=== PATIENT | male | born 1955 | race Hispanic/Latino ===

== ENCOUNTER 2018-07-18 12:34 | Emergency (ER) | payer MEDICAID ==
[2018-07-18 12:34] VITALS: BMI 19.8
[2018-07-18 13:07] VITALS: RESP 20
[2018-07-18] MEDS ORDERED: Permethrin 5% Cream(60 gm) TOP ONE (13:07)
--- NOTE | 2018-07-18 13:52 | C.PDOC ---
History Of Present Illness 62 year old male with PMHx of HTN, Hepatitis C, scabies and homelessness presents to the ED complaining of itching and insect bites to his body. Reports he was admitted in the hospital several months ago for Pneumonia where they got rid of his scabies but now he has it again because he is homeless. Also complains of hernia. As per records, patient has had right inguinal hernia since 2015. Complains of diffused generalized abdominal pain and difficulty urinating for several months. Denies any fever, chills or cough. Time Seen by Provider: 07/18/18 12:49 Chief Complaint (Nursing): Abdominal Pain History Per: Patient History/Exam Limitations: no limitations Onset/Duration Of Symptoms: Days Current Symptoms Are (Timing): Still Present Past Medical History Reviewed: Historical Data, Nursing Documentation, Vital Signs Vital Signs: Last Vital Signs Temp 97.8 F 07/18/18 13:06 Pulse 83 07/18/18 13:06 Resp 20 07/18/18 13:06 BP 133/82 07/18/18 13:06 Pulse Ox 95 07/18/18 13:06 Primary Care Provider: FAMILY PROVIDER,NO - Medical History PMH: Anxiety, Depression, HTN (not medicated), Pneumothorax (L-side) Denies: Chronic Kidney Disease Other Surgeries: hx of surgeries - [facility] DRAINAGE OF L PLEURAL CAV WITH DRAIN DEV, PERC APPROACH (04/18/18) Family History: States: No Known Family Hx - Social History Hx Tobacco Use: Yes Hx Alcohol Use: Yes (1 pint of vodka daily) Hx Substance Use: Yes (crack) - Immunization History Hx Tetanus Toxoid Vaccination: No Hx Influenza Vaccination: No Hx Pneumococcal Vaccination: No Review Of Systems Except As Marked, All Systems Reviewed And Found Negative. Constitutional: Negative for: Fever, Chills Respiratory: Negative for: Cough Gastrointestinal: Positive for: Abdominal Pain Skin: Positive for: Other (itching ) Physical Exam - Physical Exam Appears: Non-toxic, No Acute Distress, Unkempt, Other (elderly, looks older than stated age, frail appearing ) Skin: Warm, Dry, Other (small scabs in arms, insect bites in his abdomen) Head: Normacephalic Eye(s): bilateral: Normal Inspection Nose: Normal Oral Mucosa: Moist Teeth: No Normal Dentition (poor dentition ) Neck: Supple Chest: Symmetrical Cardiovascular: Rhythm Regular Respiratory: Normal Breath Sounds, No Rales, No Rhonchi, No Wheezing Gastrointestinal/Abdominal: Soft, Tenderness (slight tenderness to right inguinal hernia ), No Guarding, No Rebound Neurological/Psych: Oriented x3, Normal Speech Gait: Steady ED Course And Treatment O2 Sat by Pulse Oximetry: 95 (RA) Pulse Ox Interpretation: Normal Medical Decision Making Medical Decision Making: Plan - Permethrin Cream Disposition - Disposition Referrals: [facility] [Outside] Disposition: HOME/ ROUTINE Disposition Time: 14:16 Condition: GUARDED Instructions: Scabies (DC) Forms: [facility] (Turkish), General Discharge Instructions - POA Present On Arrival: None - Clinical Impression Clinical Impression: Recurrent right inguinal hernia, Scabies - Scribe Statement The provider has reviewed the documentation as recorded by the Scribe Amberly Cedeno All medical record entries made by the Scribe were at my direction and personally dictated by me. I have reviewed the chart and agree that the record accurately reflects my personal performance of the history, physical exam, medical decision making, and the department course for this patient. I have also personally directed, reviewed, and agree with the discharge instructions and disposition.
[2018-07-18 15:05] VITALS: BP 138/84; PULSE 66; TEMP 98.7
[2018-07-18 15:24] VITALS: O2SAT 95
== END 2018-07-18 15:45 | disposition home or self-care (01) ==
LOC: C.ER 12:34
DX: B86 Scabies (principal); K40.91 Unilateral inguinal hernia, without obstruction or gangrene, recurrent